=== PATIENT | female | born 1985 | race Caucasian/White ===

== ENCOUNTER → 2018-11-01 13:17 | Outpatient (CLI) | payer OTHER, SELFPAY ==
[2018-11-01 13:06] VITALS: BMI 22.4
--- NOTE | 2018-11-01 13:19 | RAD_ITS ---
STUDY: X-RAY - LEFT WRIST REASON FOR EXAM: Female, 32 years old. Pain following injury. TECHNIQUE: 3 view(s) of the wrist were obtained. COMPARISON: None. FINDINGS: Normal visualized distal radius and ulna. Normal radiocarpal articulation. Normal distal radioulnar articulation. Normal carpal bones. Normal carpal articulations. Normal carpometacarpal articulation of the thumb. Normal second through fifth carpometacarpal articulations. Normal visualized metacarpal bones. The soft tissue structures are unremarkable. RAD/Wrist min 3 Views IMPRESSION: Normal x-ray examination of the wrist. Electronically Signed: Marcello Jacques, at 14:02 EDT , Service support ,
== END ==
LOC: HPRAD 13:19
PROVIDERS: Referring Provider Physician Assistant; Visit Provider Physician Assistant
DX: S63.502A Unspecified sprain of left wrist, initial encounter (principal)
CPT/HCPCS: 73110; A4216

== ENCOUNTER → 2019-09-18 | Outpatient (CLI) | payer BC, SELFPAY ==
[2019-09-18 09:54] VITALS: BMI 22.4
[2019-09-18 12:19] LABS: Absolute Lymphocyte Count 2.77 X10^3/uL (0.83-4.51); Absolute Neutrophil Count 5.5 X10^3/uL (2.0-7.7); Basophil# 0.03 X10^3/uL; Basophil% 0.3 % (0-1); Eosinophils% 1.1 % (0-5); Hematocrit 45.5 % (37-47); Hemoglobin 15.8 g/dL (12.0-15.0); Lymphocyte # 2.77 X10^3/ul (4.0); Lymphocyte % 31.1 % (19-41); Mean Corp Hgb Conc 34.7 g/dL (32-36); Mean Corpuscular Hgb 30.2 pg (27.0-32.0); Mean Platelet Vol. 11.1 fl (6.2-12.0); Monocyte# 0.52 X10^3/uL; Monocyte% 5.8 % (0-10); NRBC Flagged by Analyzer 0 % (0-5); Neutrophil # 5.46 X10^3/uL (2.7-7.7); Neutrophil % 61.3 % (47-70); Platelet Count 206 K/mm3 (150-450); RBC Distribution Width CV 12.9 % (11.6-14.6); RBC Distribution Width SD 40.7 fl (35.1-43.9); Red Blood Count 5.23 M/mm3 (4.2-5.4); White Blood Count 8.9 K/mm3 (4.4-11.0)
[2019-09-18 12:43] LABS: ALB/GLOB Ratio 1.3 RATIO (0.9-2.4); AST(SGOT) 15 U/L (15-37); Alanine Aminotransfer ALT/SGPT 24 U/L (13-56); Albumin, Serum 3.9 g/dL (3.2-5.0); Alkaline Phosphatase 70 U/L (45-117); Anion Gap 4 (5-15); BUN 9 mg/dL (7-18); Calcium,Total 8.5 mg/dL (8.5-10.1); Chloride 109 mmol/L (98-107); Cholesterol 143 mg/dL (200); Creatinine, Serum 0.69 mg/dL (0.55-1.02); EST Glomerular Filtration Rate 103 mL/min (>60); Est Glom Filt Rate - Afr Amer 125 mL/min (>60); Globulin 3.1 g/dL (2.2-4.2); Glucose 88 mg/dL (74-106); High Density Lipoprotein 25 mg/dL; Potassium 4.3 mmol/L (3.5-5.1); Sodium Level 139 mmol/L (136-145); Triglycerides 386 mg/dL; Very Low Density Lipoprotein 77 mg/dL (5-40)
== END | disposition home or self-care (01) ==
LOC: BIMLAB 10:46
PROVIDERS: PCP Internal Medicine; Referring Provider Internal Medicine; Visit Provider Internal Medicine
DX: Z00.00 Encounter for general adult medical examination without abnormal findings (principal)
CPT/HCPCS: 36415; 80053; 80061; 85025

== ENCOUNTER → 2020-02-01 | Outpatient (CLI) | payer BC, SELFPAY ==
[2020-01-31 16:09] VITALS: BMI 22.4
== END | disposition home or self-care (01) ==
LOC: LABSPEC 11:08
PROVIDERS: PCP Internal Medicine; Referring Provider Internal Medicine; Visit Provider Internal Medicine
DX: Z20.828 Contact with and (suspected) exposure to other viral communicable diseases (principal)
CPT/HCPCS: 87635; G2023; U0003

== ENCOUNTER → 2020-07-09 15:05 | Outpatient (CLI) | payer OTHER, SELFPAY ==
[2020-04-16 11:24] VITALS: BMI 22.4
--- NOTE | 2020-07-09 15:07 | RAD_ITS ---
STUDY: X-RAY RIGHT FOOT, 1 TOE REASON FOR EXAM: Female, 34 years old. right great toe pain off and on for a year TECHNIQUE: 3 view(s) of the toe were obtained. COMPARISON: None. FINDINGS: Normal visualized metatarsus. Normal metatarsophalangeal (M.T.P) joint. Normal interphalangeal joints. Normal phalanges and interphalangeal joints. The soft tissue structures are unremarkable. RAD/Toe(s) Min 2 Views IMPRESSION: Normal x-ray of the toe. Electronically Signed: Vasquez Cervantes MD at 15:49 EST Tel , Service support ,
== END ==
PROVIDERS: PCP Nurse Practitioner Family; Referring Provider Nurse Practitioner Family; Visit Provider Nurse Practitioner Family
DX: M79.674 Pain in right toe(s) (principal)
CPT/HCPCS: 73660

== ENCOUNTER → 2020-09-26 14:54 | Outpatient (CLI) | payer OTHER, SELFPAY ==
[2020-09-26 17:13] LABS: T4 Free Direct 0.84 ng/dL (0.76-1.46); Thyroid Stim Hormone (TSH) 0.44 uIU/mL (0.358-3.74)
== END ==
PROVIDERS: PCP Nurse Practitioner Family; Referring Provider Nurse Practitioner Family; Visit Provider Nurse Practitioner Family
DX: E04.1 Nontoxic single thyroid nodule (principal)
CPT/HCPCS: 36415; 84439; 84443

== ENCOUNTER → 2020-10-02 15:55 | Outpatient (CLI) | payer OTHER, SELFPAY ==
--- NOTE | 2020-10-02 15:56 | US_ITS ---
STUDY: THYROID ULTRASOUND REASON FOR EXAM: Female, 34 years old. Probable mass in the left thyroid. TECHNIQUE: Ultrasound evaluation of the thyroid was performed with real-time and static villa-scale imaging. COMPARISON: None. FINDINGS: RIGHT LOBE: The right lobe of the thyroid gland measures 6.1 x 1.8 x 1.6 cm. There is a heterogeneous echotexture. There are multiple thyroid nodules in the lower pole there is a complex, predominantly cystic mass measuring 1.9 x 1.3 x 1.3 cm. Just inferior is another mass of mixed solid and cystic composition measuring 1.6 x 1.7 x 1.0 cm. The majority of the remainder findings are cystic or mixed solid and cystic and are smaller in size. Normal vascularity on DOPPLER imaging. LEFT LOBE: The left lobe of the thyroid gland measures 5.8 x 2.2 x 1.9 cm. There is a homogeneous echotexture. There are multiple left thyroid nodules. In the mid thyroid there is a 1.2 x 1 x 1.1 cm mixed solid and cystic but predominantly solid nodule. In the lower pole there is a predominantly solid 1.4 x 1.3 x 1.1 cm nodule. Other smaller cystic foci are noted. Normal vascularity on DOPPLER imaging. ISTHMUS: The isthmus measures 0.3 cm. In the left neck in the region of palpable mass is a 2.4 x 1.2 x 0.7 cm hypoechoic focus thought to represent a lymph node. Lateral to the right thyroid there is a 1.5 x 0.9 x 2 cm soft tissue mass thought to represent a lymph node. US/Thyroid IMPRESSION: 1. Multiple bilateral thyroid nodules. The most suspicious nodules are those in the left thyroid. The ventricles are solid or almost completely solid, hypoechoic, [id number], smoothly marginated and contains no echogenic foci. They are considered moderately suspicious. Recommend follow-up thyroid ultrasounds at 1, 2, 3 and 5 years. 2. What appear to be enlarged lymph nodes bilaterally in the neck. Then on the left correlates with the palpable mass. Electronically Signed: Constantino Seaman DO at 22:42 EST Tel [phone], Service support ,
== END ==
PROVIDERS: PCP Nurse Practitioner Family; Referring Provider Nurse Practitioner Family; Visit Provider Nurse Practitioner Family
DX: E04.1 Nontoxic single thyroid nodule (principal)
CPT/HCPCS: 76536

== ENCOUNTER → 2020-10-21 07:07 | Outpatient (CLI) | payer OTHER, SELFPAY ==
[2020-10-14 13:32] VITALS: BMI 26.1
--- NOTE | 2020-10-21 07:08 | CT_ITS ---
STUDY: CT SOFT TISSUE NECK WITH CONTRAST REASON FOR EXAM: Female, 34 years old. Left neck pain -- ATT: Larynx RADIATION DOSAGE (If Supplied By Facility): CTDIvol = ( 16.3 ) mGy, DLP = ( 456.16 ) mGycm TECHNIQUE: The patient was scanned in a multi-detector CT scanner. High resolution transaxial imaging was performed following intravenous administration of IV 75mL Isovue-300. Sagittal and coronal images were reconstructed. Individualized dose optimization techniques were used for this CT. COMPARISON: None. FINDINGS: Normal bilateral parotid glands. Normal bilateral configuration management advisor spaces. Normal bilateral parapharyngeal spaces. Normal bilateral carotid spaces. Normal bilateral sublingual and submandibular glands and spaces. Normal visualized nasopharynx. Normal retropharyngeal space. Normal perivertebral space. Normal visualized bilateral faucial tonsils. The visualized tongue, tongue base and oropharynx are normal. The visualized cervical lymph nodes (levels I-) are within normal size limits, and maintain normal morphology. There is no demonstrated solid or cystic mass lesion. There is no abnormal contrast enhancement. Normal epiglottis, bilateral vallecula and hypopharynx. The pre-epiglottic and paraglottic adipose spaces are normal. Normal visualized bilateral piriform sinuses, aryepiglottic folds, vocal cords, and arytenoid-cricoid articulations. Normal subglottic trachea. Hypodense nodules are seen in both lobes of the thyroid gland. Small residual thymus. Normal visualized paranasal sinuses. Normal visualized cervical spine. CT/Soft Tissue Neck WITH Contrast IMPRESSION: Heterogeneous appearance of the thyroid gland with some bilateral hypodense nodules. Small remnant of the thymus. Electronically Signed: Marcello Jacques MD at 10:56 EDT , Service support ,
== END ==
PROVIDERS: PCP Nurse Practitioner Family; Referring Provider Surgery; Visit Provider Surgery
DX: M54.2 Cervicalgia (principal)
CPT/HCPCS: 70491; Q9967

== ENCOUNTER → 2020-11-07 | Outpatient (CLI) | payer OTHER, SELFPAY ==
--- NOTE | 2020-11-07 07:30 | ASPSI_PTH ---
PATIENT: DENNY CAMP LOC: [facility] U#:[id number] AGE/SX: 34/F ROOM: RE11/07/[address]: Dr. Mendez Wallace MD : 1985 BED: DIS: 11/07/2020 SPEC #: [id number] RECD: 11/07/20 09:34 STATUS: MIO WELSHFloyd #: [id number] ANASTASIA: 11/07/20 07:[address]: Mendez Wallace DEPT: CYTOLOGY RECD BY: Kelley Mckeon ENTERED: 11/07/20 12:27 SP TYPE: ASP DESHAUN SOLER DR: Dr. Alli Matamoros MD Tissues: A - Thyroid gland, NOS B - Thyroid gland, NOS C - Thyroid gland, NOS D - Thyroid gland, NOS Procedures: Surgery Specimen Level IV Cytospin Fluid Cytology Other HEADER OPERATION: Bilateral thyroid FNA PRE-OP DIAGNOSIS: Bilateral thyroid nodules TISSUE SUBMITTED: A - Right thyroid fluid, B - Right thyroid slides x4, C - Left superior medial fluid, D - Left superior lateral slides x4 DIAGNOSIS CYTOLOGY A. Right thyroid nodule fluid, FNA (cytospin and cell block): A cluster of benign follicular cells is noted. B. Right thyroid nodule, FNA (smears): Consistent with benign follicular/colloid nodule with focal cystic changes. Adequate for evaluation. C. Left superior medial thyroid nodule fluid, FNA (cytospin and cell block): A cluster of benign follicular cells is noted. D. Left superior lateral thyroid nodule, FNA (smears): A few macrophages, rare benign follicular cells and calcified material are noted. The specimen is suboptimal for evaluation due to lack adequate number of follicular cells. SJ:gracy 11/10/2020 COMMENT Correlation with clinical, radiologic findings and appropriate follow up are necessary. Case has been reviewed in consultation with Dr. Gallo who concurs with the above diagnosis. IDC:AM CYTOLOGY STUDY Slides are reviewed. CYTOLOGY GROSS A - Received is 1 ml of bloody fluid labeled with the patient's name and and designated per the requisition as right thyroid. Submitted for cytology preparation including cell block. B - Received are four smears labeled with the patient's name and designated per the requisition as right thyroid. Submitted for staining. C - Received is 3 ml of bloody fluid labeled with the patient's name and and designated per the requisition as left superior medial thyroid. Submitted for cytology preparation including cell block. D - Received are four smears labeled with the patient's name and designated per the requisition as left superior lateral thyroid. Submitted for staining. / gracy 11/07/2020 TC:5 CPT: 89230 x2, 23697 x2, 49768 x2
[2020-11-07 09:38] VITALS: BMI 26.1
== END | disposition home or self-care (01) ==
LOC: LABSPEC 09:40
PROVIDERS: PCP Internal Medicine; Referring Provider Surgery; Visit Provider Surgery
DX: E04.2 Nontoxic multinodular goiter (principal)
CPT/HCPCS: 88108; 88161; 88305

== ENCOUNTER → 2021-05-15 08:04 | Outpatient (CLI) | payer OTHER, SELFPAY ==
[2021-05-15 14:07] LABS: Magnesium 2.1 mg/dL (1.6-2.6); T4 Free Direct 0.96 ng/dL (0.76-1.46); Thyroid Stim Hormone (TSH) 0.02 uIU/mL (0.358-3.74)
== END ==
PROVIDERS: PCP Internal Medicine; Referring Provider Nurse Practitioner Family; Visit Provider Nurse Practitioner Family
DX: R00.2 Palpitations (principal)
CPT/HCPCS: 36415; 83735; 84439; 84443

== ENCOUNTER → 2021-06-11 08:19 | Outpatient (CLI) | payer OTHER, SELFPAY ==
[2021-06-11 10:44] LABS: Cholesterol 143 mg/dL (200); High Density Lipoprotein 24 mg/dL; Thyroid Stim Hormone (TSH) 0.03 uIU/mL (0.358-3.74); Triglycerides 397 mg/dL; Very Low Density Lipoprotein 79 mg/dL (5-40)
== END ==
PROVIDERS: PCP Internal Medicine; Referring Provider Nurse Practitioner Family; Visit Provider Nurse Practitioner Family
DX: E05.90 Thyrotoxicosis, unspecified without thyrotoxic crisis or storm (principal); E78.5 Hyperlipidemia, unspecified; R00.2 Palpitations
CPT/HCPCS: 36415; 80061; 84439; 84443; 93225; 93226

== ENCOUNTER → 2021-07-07 13:42 | Outpatient (CLI) | payer OTHER, SELFPAY ==
[2021-07-07 15:39] LABS: Vitamin D,25 Hydroxy 9.8 ng/mL
[2021-07-07 15:57] LABS: Free T3 2.5 pg/mL (2.18-3.98); T4 Free Direct 0.88 ng/dL (0.76-1.46); Thyroid Stim Hormone (TSH) 0.29 uIU/mL (0.358-3.74)
[2021-07-09 16:09] LABS: Thyroid Stim Immunoglob <0.10 IU/L (0.00-0.55)
[2021-07-09 21:40] LABS: Thyroid Peroxidase AB < 8 IU/mL (0-34)
== END ==
PROVIDERS: PCP Internal Medicine; Visit Provider Internal Medicine Endocrinology, Diabetes & Metabolism
DX: E05.90 Thyrotoxicosis, unspecified without thyrotoxic crisis or storm (principal); E55.9 Vitamin D deficiency, unspecified
CPT/HCPCS: 36415; 82306; 84439; 84443; 84445; 84481; 86376

== ENCOUNTER 2021-08-10 08:37 | Outpatient (CLI) | payer OTHER, SELFPAY ==
[2021-08-10 16:30] LABS: Free T3 3.1 pg/mL (2.18-3.98); T4 Free Direct 1.02 ng/dL (0.76-1.46)
== END 2021-08-10 23:59 | disposition short-term general hospital (02) ==
LOC: MTLAB 08:39 → LAB 14:56
PROVIDERS: PCP Internal Medicine; Referring Provider Internal Medicine Endocrinology, Diabetes & Metabolism; Visit Provider Internal Medicine Endocrinology, Diabetes & Metabolism
DX: E05.90 Thyrotoxicosis, unspecified without thyrotoxic crisis or storm (principal)
CPT/HCPCS: 36415; 84439; 84443; 84481

== ENCOUNTER 2021-09-18 08:01 | Outpatient (CLI) | payer OTHER, SELFPAY ==
--- NOTE | 2021-09-18 08:02 | US_ITS ---
STUDY: THYROID ULTRASOUND REASON FOR EXAM: Female, 35 years old. Thyroid nodules TECHNIQUE: Ultrasound evaluation of the thyroid was performed with real-time and static villa-scale imaging. COMPARISON: 10/02/2020 FINDINGS: RIGHT LOBE: The right lobe of the thyroid gland measures 5.7 x 2.1 x 1.9 cm. There is a homogeneous echotexture. 5 separate solid nodules are noted. 4 of them are complex, solid/cystic, with internodular flow. There is one solid 0.7 cm nodule with internodular flow. LEFT LOBE: The left lobe of the thyroid gland measures 5.7 x 1.9 x 1.8 cm. There is a homogeneous echotexture. 3 separate solid/cystic nodules are noted with perihilar nodular flow. There is one solid 1.5 cm lower pole nodule with internodular flow. Overall, no interval changes noted since the previous study. ISTHMUS: The isthmus measures 0.2 cm. The regional lymph nodes are normal. US/Thyroid IMPRESSION: Large homogeneous thyroid gland with stable bilateral nodules, most are complex, solid and cystic. One in each lobe is solid. No interval change since the previous study, findings suggest goiter. Another yearly follow-up is recommended to assess stability Electronically Signed: Kurt Becerra MD at 14:38 EST ,
== END 2021-09-18 23:59 | disposition home or self-care (01) ==
LOC: US 08:02
PROVIDERS: PCP Internal Medicine; Referring Provider Surgery; Visit Provider Surgery
DX: E05.90 Thyrotoxicosis, unspecified without thyrotoxic crisis or storm (principal); E04.2 Nontoxic multinodular goiter
CPT/HCPCS: 76536

== ENCOUNTER → 2022-04-23 | Outpatient (CLI) | payer OTHER, SELFPAY ==
[2022-04-23 10:10] LABS: Vitamin D,25 Hydroxy 31.6 ng/mL
[2022-04-23 10:23] LABS: Thyroid Stim Hormone (TSH) 0.54 uIU/mL (0.358-3.74)
== END | disposition home or self-care (01) ==
LOC: MTLAB 07:40
PROVIDERS: PCP Internal Medicine; Referring Provider Nurse Practitioner Family; Visit Provider Nurse Practitioner Family
DX: E05.90 Thyrotoxicosis, unspecified without thyrotoxic crisis or storm (principal); E55.9 Vitamin D deficiency, unspecified
CPT/HCPCS: 36415; 82306; 84443

== ENCOUNTER → 2022-09-23 | Outpatient (CLI) | payer OTHER, SELFPAY ==
--- NOTE | 2022-09-23 07:34 | US_ITS ---
STUDY: THYROID ULTRASOUND REASON FOR EXAM: Female, 36 years old. Thyroid nodule - compare to previous TECHNIQUE: Ultrasound evaluation of the thyroid was performed with real-time and static villa-scale imaging. COMPARISON: Comparison is made with prior examination dated September 18, 2021. FINDINGS: RIGHT LOBE: The right lobe of the thyroid gland is enlarged and measures 5.9 cm x 1.9 cm x 1.8 cm. There is a heterogeneous echotexture. Once again, there are at least 5 complex solid and cystic nodules throughout the right lobe. The largest nodule measures 1.5 cm x 1.87 x 1 cm. This is essentially unchanged. LEFT LOBE: The left lobe of the thyroid gland is enlarged and measures 5.7 cm x 2 cm x 1.9 cm. There is a heterogeneous echotexture. Once again, there are 4 complex solid and cystic nodules scattered throughout the left lobe. The largest measures 1.5 cm x 1.6 x 1.1 cm. There has been essentially no change. ISTHMUS: The isthmus measures 2 mm. The regional lymph nodes are normal. US/Thyroid IMPRESSION: Heterogeneous enlargement of both lobes of the thyroid gland. Stable multiple bilateral complex solid and cystic nodules scattered throughout both lobes. Electronically Signed: Marcello Jacques MD at 14:02 EST ,
== END | disposition home or self-care (01) ==
LOC: US 07:33
PROVIDERS: PCP Internal Medicine; Visit Provider Surgery
DX: E04.1 Nontoxic single thyroid nodule (principal)
CPT/HCPCS: 76536

== ENCOUNTER → 2023-11-25 | Outpatient (CLI) | payer BC, SELFPAY ==
[2023-11-25 16:19] LABS: Absolute Lymphocyte Count 2.81 X10^3/uL (0.83-4.51); Absolute Neutrophil Count 5.6 X10^3/uL (2.0-7.7); Basophil# 0.06 X10^3/uL; Basophil% 0.7 % (0-1); Eosinophils% 1.1 % (0-5); Hematocrit 41.4 % (37-47); Hemoglobin 14.5 g/dL (12.0-15.0); Lymphocyte # 2.81 X10^3/ul (0.83-4.51); Lymphocyte % 30.8 % (19-41); Mean Corpuscular Hgb 28.8 pg (27.0-32.0); Mean Corpuscular Volume 82.1 fL (81-99); Mean Platelet Vol. 10.9 fl (6.2-12.0); Monocyte# 0.51 X10^3/uL; Monocyte% 5.6 % (0-10); NRBC Flagged by Analyzer 0 % (0-5); Neutrophil # 5.59 X10^3/uL (2.7-7.7); Neutrophil % 61.3 % (47-70); Platelet Count 244 K/mm3 (150-450); RBC Distribution Width CV 12.9 % (11.6-14.6); RBC Distribution Width SD 38.4 fl (35.1-43.9); Red Blood Count 5.04 M/mm3 (4.2-5.4); White Blood Count 9.1 K/mm3 (4.4-11.0)
[2023-11-25 16:47] LABS: ALB/GLOB Ratio 1.2 RATIO (0.9-2.4); AST(SGOT) 12 U/L (15-37); Alanine Aminotransfer ALT/SGPT 18 U/L (13-56); Albumin, Serum 3.7 g/dL (3.2-5.0); Alkaline Phosphatase 83 U/L (45-117); Anion Gap 7 (5-15); BUN 10 mg/dL (7-18); BUN/Creat Ratio 12.6 RATIO (10-20); Calcium,Total 8.6 mg/dL (8.5-10.1); Chloride 109 mmol/L (98-107); Cholesterol 121 mg/dL (200); Creatinine, Serum 0.79 mg/dL (0.55-1.02); EST Glomerular Filtration Rate 86 mL/min (>60); Est Glom Filt Rate - Afr Amer 104 mL/min (>60); Globulin 3.2 g/dL (2.2-4.2); Glucose 102 mg/dL (74-106); High Density Lipoprotein 23 mg/dL; Potassium 3.6 mmol/L (3.5-5.1); Protein, Total 6.9 g/dL (6.4-8.2); Sodium Level 141 mmol/L (136-145); T4 Free Direct 1.05 ng/dL (0.76-1.46); Thyroid Stim Hormone (TSH) 0.03 uIU/mL (0.358-3.74); Triglycerides 388 mg/dL; Very Low Density Lipoprotein 78 mg/dL (5-40)
[2023-11-30 00:07] LABS: T3 Reverse 19.6 ng/dL (9.2-24.1)
== END | disposition home or self-care (01) ==
LOC: BIMLAB 14:48
PROVIDERS: PCP Internal Medicine; Visit Provider Internal Medicine
DX: E05.90 Thyrotoxicosis, unspecified without thyrotoxic crisis or storm (principal); E78.5 Hyperlipidemia, unspecified
CPT/HCPCS: 36415; 80053; 80061; 84439; 84443; 84482; 85025

== ENCOUNTER → 2023-12-13 | Outpatient (CLI) | payer BC, SELFPAY ==
--- NOTE | 2023-12-13 08:00 | RAD_ITS ---
INDICATION: Cervical radiculopathy EXAMINATION/TECHNIQUE: X-RAY - XR Spine Cervical 2 or 3 Views COMPARISON: None. FINDINGS: VERTEBRAE: Preserved vertebral body height. No fracture. No spondylolisthesis. Preservation of the normal cervical lordosis. No significant facet arthropathy. DISCS: Disc spaces are maintained. NECK SOFT TISSUES: No prevertebral soft tissue widening. LUNG APICES: Clear. RAD/Cerv Spine 2 or 3 Views IMPRESSION: 1. No evidence of acute fracture or spondylolisthesis. No focal bony lesions noted. Electronically Signed: Vasquez Collins MD at 19:23 EDT ,
== END | disposition home or self-care (01) ==
PROVIDERS: PCP Internal Medicine; Referring Provider Internal Medicine; Visit Provider Internal Medicine
DX: M54.12 Radiculopathy, cervical region (principal)
CPT/HCPCS: 72040

== ENCOUNTER → 2024-08-22 | Outpatient (CLI) | payer BC, SELFPAY ==
[2024-08-22 08:05] LABS: Absolute Lymphocyte Count 2.21 X10^3/uL (0.83-4.51); Absolute Neutrophil Count 3.3 X10^3/uL (2.0-7.7); Basophil# 0.03 X10^3/uL; Basophil% 0.5 % (0-1); Eosinophil# 0.06 X10^3/uL; Hematocrit 42.1 % (37-47); Hemoglobin 14.2 g/dL (12.0-15.0); Lymphocyte # 2.21 X10^3/ul (0.83-4.51); Lymphocyte % 36.4 % (19-41); Mean Corp Hgb Conc 33.7 g/dL (32-36); Mean Corpuscular Hgb 28.1 pg (27.0-32.0); Mean Corpuscular Volume 83.4 fL (81-99); Monocyte# 0.43 X10^3/uL; Monocyte% 7.1 % (0-10); NRBC Flagged by Analyzer 0 % (0-5); Neutrophil # 3.32 X10^3/uL (2.7-7.7); Neutrophil % 54.7 % (47-70); Platelet Count 233 K/mm3 (150-450); RBC Distribution Width CV 13.2 % (11.6-14.6); RBC Distribution Width SD 40.2 fl (35.1-43.9); Red Blood Count 5.05 M/mm3 (4.2-5.4); White Blood Count 6.1 K/mm3 (4.4-11.0)
[2024-08-22 08:32] LABS: ALB/GLOB Ratio 1.2 RATIO (0.9-2.4); AST(SGOT) 13 U/L (15-37); Alanine Aminotransfer ALT/SGPT 20 U/L (13-56); Albumin, Serum 3.9 g/dL (3.2-5.0); Alkaline Phosphatase 77 U/L (45-117); Anion Gap 9 (5-15); BUN 11 mg/dL (7-18); BUN/Creat Ratio 14.1 RATIO (10-20); Calcium,Total 9.3 mg/dL (8.5-10.1); Chloride 108 mmol/L (98-107); Cholesterol 191 mg/dL (200); Creatinine, Serum 0.78 mg/dL (0.55-1.02); EST Glomerular Filtration Rate 88 mL/min (>60); Est Glom Filt Rate - Afr Amer 106 mL/min (>60); Globulin 3.3 g/dL (2.2-4.2); Glucose 96 mg/dL (74-106); High Density Lipoprotein 42 mg/dL; Protein, Total 7.2 g/dL (6.4-8.2); Sodium Level 141 mmol/L (136-145); T4 Free Direct 0.85 ng/dL (0.76-1.46); Thyroid Stim Hormone (TSH) 0.419 uIU/mL (0.358-3.740); Triglycerides 120 mg/dL; Very Low Density Lipoprotein 24 mg/dL (5-40)
[2024-08-25 15:07] LABS: T3 Reverse 13.6 ng/dL (9.2-24.1)
== END | disposition home or self-care (01) ==
PROVIDERS: PCP Internal Medicine; Referring Provider Internal Medicine; Visit Provider Internal Medicine
DX: E78.5 Hyperlipidemia, unspecified (principal); E05.90 Thyrotoxicosis, unspecified without thyrotoxic crisis or storm
CPT/HCPCS: 36415; 80053; 80061; 84439; 84443; 84482; 85025

== ENCOUNTER → 2024-10-08 | Outpatient (CLI) | payer BC, SELFPAY ==
[2024-10-08 18:04] LABS: Anion Gap 10 (5-15); BUN 13 mg/dL (4-19); BUN/Creat Ratio 16.4 RATIO (10-20); Calcium,Total 9.4 mg/dL (7.6-11.0); Carbon Dioxide 22.4 mmol/L (21.0-32.0); Chloride 105 mmol/L (98-108); Creatinine, Serum 0.78 mg/dL (0.70-1.20); EST Glomerular Filtration Rate 99 (>60); Glucose 80 mg/dL (70-99); Magnesium 2.2 mg/dL (1.5-2.2); Potassium 3.8 mmol/L (3.3-5.1); Sodium Level 137 mmol/L (133-145); Thyroid Stim Hormone (TSH) 0.351 uIU/mL (0.300-4.200)
== END | disposition home or self-care (01) ==
LOC: LAB 16:35
PROVIDERS: PCP Internal Medicine; Referring Provider Physician Assistant; Visit Provider Physician Assistant
DX: R00.2 Palpitations (principal)
CPT/HCPCS: 36415; 80048; 83735; 84443

== ENCOUNTER → 2025-01-03 | Outpatient (CLI) | payer BC, SELFPAY ==
[2025-01-03 15:11] LABS: Mucous, Urine 0 SEEN /hpf (<or=2+)
[2025-01-03 16:57] LABS: Color, Urine Straw (Yellow); Glucose, Dipstick Normal (Normal); Ketone-Dipstick Negative (Negative); Leukocyte Esterase-Dipstick 25 /ul (Negative); Nitrite-Dipstick Negative (Negative); Occult Blood-Urine 25 /ul (Negative); Protein-Dipstick Negative (Negative); Urine Bilirubin Dipstick Negative (Negative); Urine Clarity Clear (Clear); Urine Urobilinogen Normal (Normal)
[2025-01-03 20:59] LABS: Red Blood Cells-Urine 0-5 SEEN /hpf (0-5); White Blood Cells 5-10 SEEN /hpf (0-5)
[2025-01-03 21:00] LABS: Bacteria 1+ /hpf (None Seen); Squamous Epithelial Cells - UA 0-5 SEEN /hpf (5-10)
== END | disposition home or self-care (01) ==
LOC: LABSPEC 15:09
PROVIDERS: PCP Internal Medicine; Referring Provider Nurse Practitioner Family; Visit Provider Nurse Practitioner Family
DX: R30.0 Dysuria (principal)
CPT/HCPCS: 81001; 87077; 87086; 87088; 87186